=== PATIENT | female | born 1940 | race Caucasian/White ===

== ENCOUNTER 2017-10-19 19:54 | Emergency (ER) | payer OTHER, MEDICARE ==
[2017-10-19 20:04] VITALS: O2SAT 93
--- NOTE | 2017-10-19 20:04 | EDPHY ---
H & P Time Seen by Provider: 10/19/17 20:03 HPI/ROS: HPI: This is a 77-year-old female who presents with Chief Complaint: nosebleed Location: Nose Quality: Bleeding Duration: 30 min prior to arrival Signs and Symptoms: No headache, no shortness of breath, no chest pain, no dizziness, no injury, no trauma, no sinus pressure, no runny nose, no nasal congestion, no fever Timing: Acute Severity: [id number] Context: Patient has a history of atrial fibrillation on Coumadin, presents with sudden onset of nose bleeding while at a restaurant having a [employer] republic[employer] with her sisters. She applied direct pressure and was unable to get it to stop so they came to the emergency room. She was seen 2 days ago at [facility] and per patient her left near was cauterized; INR was 2.2 then. Since then she has had 2 more episodes of nose bleeding from both nares that resolved with direct pressure. Modifying Factors: Direct pressure Comment: ROS: see HPI Constitutional: No fever, no chills, no weight loss Eyes: No blurred vision Respiratory: No shortness of breath, no cough Cardiovascular: No chest pain Gastrointestinal: No nausea, no vomiting, no diarrhea Genitourinary: No dysuria Extremities: No myalgias Neurologic: No weakness, no numbness Skin: No rashes Hematologic: No bruising, + bleeding MEDICAL/SURGICAL/SOCIAL HISTORY: Medical history: Atrial fibrillation on Coumadin Surgical history: Denies Social history: Retired. CONSTITUTIONAL: Pleasant elderly white female, awake and alert, no obvious distress HEENT: Atraumatic and normocephalic, PERRL, EOMI. Tympanic membranes clear. Oropharynx clear, no exudate and moist pink mucosa. Airway patent. No lymphadenopathy. No meningismus. Cardiovascular: Normal S1/S2, mild tachycardia, irregular rhythm, without murmur rub or gallop. PULMONARY/CHEST: Symmetrical and nontender. Clear to auscultation bilaterally. Good air movement. No accessory muscle usage. ABDOMEN: Soft, nondistended, nontender, no rebound, no guarding, no peritoneal signs, no masses or organomegaly. No CVAT. EXTREMITIES: 2/2 pulses, strength 5/5, no deformities, no clubbing, no cyanosis or edema. NEUROLOGICAL: no focal neuro deficits. GCS 15. SKIN: Warm and dry, no erythema. no rash. Good capillary refill. Source: Patient, Family (Sisters) Exam Limitations: No limitations Constitutional: Initial Vital Signs Heart Rate 101 H 10/19/17 20:01 Respiratory Rate 20 10/19/17 20:01 Blood Pressure 154/109 H 10/19/17 20:01 O2 Sat (%) 93 10/19/17 20:01 O2 Delivery Mode Room Air Allergies/Adverse Reactions: Penicillins Allergy (Verified 10/19/17 20:00) Home Medications: Medication Instructions Recorded Advair Hfa 115-21 Mcg Inhaler 10/19/17 Albuterol 10/19/17 Cartia XT 180mg 10/19/17 Claritin 10/19/17 Crestor 10/19/17 Fenofibrate 10/19/17 Flonase Nasal [place] 10/19/17 Montelukast Sodium 10/19/17 Pantoprazole Sodium 10/19/17 Ranitidine HCl 10/19/17 Warfarin Sodium 10/19/17 Medical Decision Making Procedures: Procedure: Epistaxis control. After verbal consent was obtained, the patient was anesthetized with cocaine. The anterior epistaxis was identified. The patient was treated with left Nare rhino rocket filled with 8 mL. Following the procedure the patient was re- examined 1 hr later and the bleeding was well controlled. The patient tolerated the procedure well. The procedure was performed by myself. ED Course/Re-evaluation: Labs, chemical cauterization, rhino rocket ordered 2100: Labs reviewed; INR 2.09; H&H stable. Patient monitored for 1 hr with no rebleeding. Patient already has an ENT establish an wishes to follow up with him. Differential Diagnosis: Differential diagnosis includes to anterior epistaxis, posterior epistaxis, nasal malignancy, dry nasal mucosa, coagulopathy. - Data Points Laboratory Results: Laboratory Results 10/19/17 20:23 10/19/17 10/19/17 20:23 20:23 WBC 5.75 10^3/uL 10^3/uL (3.80-9.50) RBC 4.79 10^6/uL 10^6/uL (4.18-5.33) Hgb 15.2 g/dL g/dL (12.6-16.3) Hct 44.5 % % (38.0-47.0) MCV 92.9 fL fL (81.5-99.8) MCH 31.7 pg pg (27.9-34.1) MCHC 34.2 g/dL g/dL (32.4-36.7) RDW 12.5 % % (11.5-15.2) Plt Count 311 10^3/uL 10^3/uL (150-400) MPV 10.0 fL fL (8.7-11.7) Neut % (Auto) 52.7 % % (39.3-74.2) Lymph % (Auto) 37.9 % % (15.0-45.0) [place] % (Auto) 6.3 % % (4.5-13.0) Eos % (Auto) 1.6 % % (0.6-7.6) Baso % (Auto) 1.2 % % (0.3-1.7) Nucleat RBC Rel Count 0.0 % % (0.0-0.2) Absolute Neuts (auto) 3.03 10^3/uL 10^3/uL (1.70-6.50) Absolute Lymphs (auto) 2.18 10^3/uL 10^3/uL (1.00-3.00) Absolute Monos (auto) 0.36 10^3/uL 10^3/uL (0.30-0.80) Absolute Eos (auto) 0.09 10^3/uL 10^3/uL (0.03-0.40) Absolute Basos (auto) 0.07 10^3/uL 10^3/uL (0.02-0.10) Absolute Nucleated RBC 0.00 10^3/uL 10^3/uL (0-0.01) Immature Gran % 0.3 % % (0.0-1.1) Immature Gran # 0.02 10^3/uL 10^3/uL (0.00-0.10) PT 23.5 SEC H SEC (12.0-15.0) INR 2.09 H (0.83-1.16) Medications Given: Discontinued Medications Cocaine HCl (Cocaine Hcl) 1 randy TP EDNOW ONE Stop: 10/19/17 20:10 Last Admin: 10/19/17 20:16 Dose: 1 randy Silver Nitrate/Potassium Nitrate (Silver Nitrate Applicator) 1 each TP EDNOW ONE Stop: 10/19/17 20:09 Last Admin: 10/19/17 20:16 Dose: 1 each Departure - Departure Disposition: Home, Routine, Self-Care Clinical Impression: Left-sided epistaxis, Anticoagulated on Coumadin Condition: Good Instructions: Nosebleed (ED) Additional Instructions: The left nare rhino rocket is to remain in place until seen by ENT for follow- up. Go to your ENT, Dr. Singh, in 72-96 hours. Please avoid digital manipulation or blowing of nose for 1 week. Use nasal saline spray and or Vaseline to keep nasal mucosa moist. Referrals: [facility] [Other] - As per Instructions
[2017-10-19] MEDS ORDERED: SILVER NITRATE APPLICATOR 1 APPL TP ONE (20:08)
[2017-10-19] MEDS ORDERED: COCAINE HCL 4% 4 ML BTL TP ONE (20:09)
[2017-10-19 20:36] LABS: % IMMATURE GRANULYOCYTES 0.3 % (0.0-1.1); ABSOLUTE IMMATURE GRANULOCYTES 0.02 10^3/uL (0.00-0.10); ADD DIFF? NO; ADD MORPH? NO; ADD SCAN? NO; ATYPICAL LYMPHOCYTE FLAG 0 (0-99); FRAGMENT RBC FLAG 0 (0-99); HEMATOCRIT 44.5 % (38.0-47.0); HEMOGLOBIN 15.2 g/dL (12.6-16.3); LEFT SHIFT FLG 0 (0-99); LIPEMIA HEMOLYSIS FLAG 90 (0-99); MEAN CELL HEMOGLOBIN 31.7 pg (27.9-34.1); MEAN CELL HEMOGLOBIN CONCENTR. 34.2 g/dL (32.4-36.7); MEAN CELL VOLUME 92.9 fL (81.5-99.8); PLATELET CLUMPS FLAG 0 (0-99); PLATELET COUNT 311 10^3/uL (150-400); RED BLOOD CELL COUNT 4.79 10^6/uL (4.18-5.33); RED CELL DISTRIBUTION WIDTH 12.5 % (11.5-15.2)
[2017-10-19 20:48] LABS: INR 2.09 (0.83-1.16); PROTIME(PATIENT) 23.5 SEC (12.0-15.0)
[2017-10-19 23:04] VITALS: BP 150/86; PULSE 78; RESP 16
== END 2017-10-19 23:03 | disposition home or self-care (01) ==
PROC: 2Y41X5Z Packing of Nasal Region using Packing Material (ICD-10-PCS; principal; 2017-10-19)
DX: R04.0 Epistaxis (principal); Z79.01 Long term (current) use of anticoagulants